=== PATIENT | female | born 1980 | race Caucasian/White ===

== ENCOUNTER 2020-06-03 12:02 | Outpatient (CLI) | payer BC ==
--- NOTE | 2020-06-04 10:02 | Ultrasound Report ---
LIMITED ULTRASOUND OF LEFT BREAST: 06/03/2020 CLINICAL: Palpable left breast lump. Comparison is made to exam dated: [facility]ound of was performed on the area of interest. There is a cyst within the skin of the left breast at 5 o'clock in the retroareolar region. This cys t is of mixed echogenicity with internal echoes. This correlates as palpated and with mammography fi ndings. Color flow imaging demonstrates that there is no vascularity present. IMPRESSION: BENIGN There is no sonographic evidence of malignancy. The cyst within the skin of the left breast is consistent with a sebaceous cyst and is benign. This exam was interpreted at Station ID: [id number]. Electronically Signed By: Dafne Ojeda M.D. lk/:06/03/2020 13:59:20 Ultrasound BI-RADS: 2 Benign BI-RADS CATEGORY: (2) - 2 Unspecified - other recall n/a LATERALITY: (B)
--- NOTE | 2020-06-04 10:02 | Mammography Report ---
BILATERAL DIGITAL DIAGNOSTIC MAMMOGRAM 3D/2D: 06/03/2020 CLINICAL: Baseline exam. Palpable left breast lump. No prior exams were available for comparison. There are scattered fibroglandular elements in both br easts. There is an irregular focal asymmetry in the left breast at 5 o'clock anterior depth. This correlate s as palpated. No other significant masses, calcifications, or other findings are seen in either breast. IMPRESSION: INCOMPLETE: NEEDS ADDITIONAL IMAGING EVALUATION The irregular focal asymmetry in the left breast is indeterminate. A targeted ultrasound of the left breast is recommended and will be performed immediately following this exam. This exam was interpreted at Station ID: [id number]. NOTE: For mammograms, a report in lay terms will be sent to the patient. Approximately 15% of breast malignancies will not be visualized mammographically. In the management of a palpable breast mass, a negative mammogram must not discourage biopsy of a clinically suspicious lesion. Electronically Signed By: Dafne Ojeda M.D. lk/:06/03/2020 13:50:50 ACR BI-RADS Category 0: Incomplete 3340F PARENCHYMAL PATTERN: (A) - The breast(s) demonstrate(s) scattered fibroglandular densities. BI-RADS CATEGORY: (0) - 0 Ultrasound [id number] Immediate follow-up LATERALITY: (B)
== END 2020-06-03 12:03 | disposition home or self-care (01) ==
LOC: DI 12:02
PROVIDERS: ATTEND Advanced Practice Midwife
DX: R92.8 Other abnormal and inconclusive findings on diagnostic imaging of breast (principal)
CPT/HCPCS: 76642; 77066